=== PATIENT | male | born 1990 ===

== ENCOUNTER 2020-04-30 19:23 | Emergency (ER) | payer SELFPAY ==
[~2020-04-30] VITALS: Ht 182.9 cm; Wt 114.0 kg
--- NOTE | 2020-04-30 19:43 | NUR ---
PT TO ED PER [facility] FOR ETOH. A CONCERNED CITIZEN CALLED BECAUSE PT WAS SLEEPING ON THE SIDEWALK OUTSIDE OF [facility]. [facility] REPORTS SONOROUS RESPIRATIONS AND PT ALERT TO PAINFUL STIMULI. NO KNOWN INJURY OR TRAUMA. FSBS 165. WHEN PT WAS MOVED FROM [facility] STRETCHER TO ED BED, PT OPENED HIS EYES. I ASKED HIM HOW MUCH HE HAD TO DRINK TODAY AND PT STATED "NOT ENOUGH". PT WAS PLACED ON BLOWBY OXYGEN OXYGEN 90%. NO KNOWN INJURY OR TRAUMA. EMS REPORTS UNEVEN PUPILS HOWEVER PT IS KNOWN TO THEM AND THEY STATE THIS IS A NORMAL VARIANT FOR PT. 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 OXYGEN LEFT ON PT LOW 90S ON ROOM AIR. NO OBVIOUS INJURY OR TRAUMA. SCATTERED DRY SKIN AND SUNBURN.
[2020-04-30 19:57] LABS: BASOPHILS # (AUTO) 0.06 x10^3/uL (0-0.1); BASOPHILS % (AUTO) 1 % (0-1); EOSINOPHILS # (AUTO) 0.61 x10^3/uL (0-0.4); EOSINOPHILS % (AUTO) 9 % (1-7); LYMPHOCYTES # (AUTO) 0.95 x10^3/uL (1-3.4); LYMPHOCYTES % (AUTO) 13 % (22-44); MD NO; MEAN CORPUSCULAR HEMOGLOBIN 28.4 pg (27.5-34.5); MEAN CORPUSCULAR VOLUME 86.1 fL (81-97); MEAN PLATELET VOLUME 7.7 fL (7.4-10.4); MONOCYTES # (AUTO) 0.66 x10^3/uL (0.2-0.8); MONOCYTES % (AUTO) 9 % (2-9); NEUTROPHILS # (AUTO) 4.85 x10^3/uL (1.8-6.8); NEUTROPHILS % (AUTO) 68 % (42-75); PLATELET COUNT 245 x10^3/uL (130-400); RED BLOOD COUNT 5.28 x10^6/uL (4.38-5.82); RED CELL DISTRIBUTION WIDTH 15.1 % (9.4-14.8)
[2020-04-30 20:10] LABS: ALANINE AMINOTRANSFERASE 175 U/L (12-78); ALBUMIN 3.6 g/dL (3.4-5.0); ANION GAP 8 mmol/L (5-15); CALCIUM 7.8 mg/dL (8.5-10.1); CHLORIDE 108 mmol/L (98-107); CREATININE 1.31 mg/dL (0.7-1.3)
[2020-04-30 20:15] LABS: ALKALINE PHOSPHATASE 130 U/L (45-117); BILIRUBIN,TOTAL 0.4 mg/dL (0.2-1.0); TOTAL PROTEIN 8.8 g/dL (6.4-8.2)
--- NOTE | 2020-04-30 20:45 | NUR ---
PT SLEEPING AT THIS TIME. REMAINS ON AIR TRAFFIC CONTROLLER AND CONTINUOUS PULSE OX. VSS.
--- NOTE | 2020-04-30 23:15 | NUR ---
PT NOW AWAKE, ALERT AND ORIENTED X 4. PT ABLE TO WALK WITH STEADY GAIT.
[2020-04-30 23:16] VITALS: BP 146/95
== END 2020-04-30 23:18 | disposition home or self-care (01) ==
LOC: ED 23:00
DX: F10.129 Alcohol abuse with intoxication, unspecified (principal); R41.82 Altered mental status, unspecified; Z72.9 Problem related to lifestyle, unspecified; R94.31 Abnormal electrocardiogram [ECG] [EKG]; Y90.9 Presence of alcohol in blood, level not specified
CPT/HCPCS: 36415; 70450; 80053; 80307; 85025; 93005; 99285